=== PATIENT | male | born 1945 | race Caucasian/White ===

== ENCOUNTER → 2018-06-16 | Outpatient (CLI) | payer MEDICARE, OTHER ==
[~2018-06-16] VITALS: Ht 162.6 cm; Wt 70.4 kg
[~2018-06-16] MED LIST: ASPIRIN E.C. 8181 MG PO; CEPHALEXIN500 M1 PO; CIPRO 500MG TA500 MG PO; COLACE 100100 MG/CAP PO; DULERA1 ARO IH; FIBRO-TABS1 TAB PO; LEVAQUIN 750MG750 M1 PO; LIPITOR20 MG PO; LISINOPRIL10 MG PO; NEXIUM 40MG40 MG PO; NEXIUM PO; PERCOCET 325 MG1 TA2 PO; PREDNISONE20 MG PO; PRESERVISION1 SGL PO; PRILOSEC 20MG20 MG PO; PRINIVIL10 MG PO; PROVENTIL0.09 MG/A1 IH; TOPROL XL 25MG25 MG PO; UROXATRAL10 M1 PO; VENTOLIN0.09 MG IH
[2018-06-16 06:33] VITALS: BP 146/80; PULSE 76
[2018-06-16 07:52] VITALS: BP 134/71; PULSE 108
[2018-06-16 07:53] VITALS: BP 141/75; PULSE 103
[2018-06-16 07:54] VITALS: BP 135/72; PULSE 106
[2018-06-16 07:55] VITALS: BP 132/74; PULSE 98
== END ==
LOC: COL.CARD 06-15 06:30 → COL.VAS 06-15 09:00 → COL.CARD 06:22
DX: I25.10 Atherosclerotic heart disease of native coronary artery without angina pectoris (principal)
CPT/HCPCS: A9500; J2785

== ENCOUNTER → 2018-09-23 | Outpatient (CLI) | payer MEDICARE, OTHER ==
[~2018-09-23] VITALS: Ht 162.6 cm; Wt 78.2 kg
[2018-09-23 13:08] VITALS: BP 154/88; PULSE 69
[2018-09-23 14:53] VITALS: BP 139/88; PULSE 70
== END ==
LOC: COL.RAD 12:45
DX: M47.812 Spondylosis without myelopathy or radiculopathy, cervical region (principal)

== ENCOUNTER → 2019-10-25 | Outpatient (CLI) | payer MEDICARE, OTHER | LOC: COL.RAD 07:43 | DX: M25.552 Pain in left hip (principal) | CPT/HCPCS: A9585; Q9967 ==

== ENCOUNTER → 2019-11-23 | Outpatient (CLI) | payer MEDICARE, OTHER | LOC: COL.LAB 08:00 → JCC 11-29 07:30 → EDSTATUS 12-01 07:30 → JCC 12-01 07:30 | DX: Z01.812 Encounter for preprocedural laboratory examination (principal) ==

== ENCOUNTER → 2020-06-23 | Outpatient (CLI) | payer MEDICARE, OTHER ==
--- NOTE | 2020-06-22 14:15 | NUR ---
SPOKE TO WITH DORY AND GAVE INSTRUCTIONS
[~2020-06-23] MED LIST changes: +JANUVIA 100MG100 MG PO; +XOPENEX HF0.045 MG/A IH
== END ==
LOC: COL.RAD 06-21 13:00
DX: M47.816 Spondylosis without myelopathy or radiculopathy, lumbar region (principal); M54.41 Lumbago with sciatica, right side

== ENCOUNTER → 2020-08-01 | Outpatient (CLI) | payer MEDICARE, OTHER ==
[~2020-08-01] VITALS: Ht 162.6 cm; Wt 74.6 kg
[~2020-08-01] MED LIST changes: +IMDUR 30MG30 MG/TAB PO
[2020-08-01 10:20] VITALS: BP 153/85; PULSE 66
--- NOTE | 2020-08-01 10:20 | NUR ---
PT STATES HE HAS PAIN ACROSS HIS LOWER BACK. DID NOT RATE THE PAIN.ON OCCASION THE PAIN WILL TRAVEL SOWN BOTH LEGS
[2020-08-01 11:00] VITALS: BP 138/79; PULSE 61
== END ==
LOC: COL.RAD 09:19
DX: M48.061 Spinal stenosis, lumbar region without neurogenic claudication (principal); M54.41 Lumbago with sciatica, right side
CPT/HCPCS: J3301

== ENCOUNTER → 2020-08-28 | Outpatient (CLI) | payer MEDICARE, OTHER | LOC: COL.RAD 13:15 | DX: M25.511 Pain in right shoulder (principal) | CPT/HCPCS: J3301; Q9967 ==

== ENCOUNTER 2021-09-25 12:41 | Outpatient (RCR) | payer MEDICARE, OTHER | END 2021-10-02 | disposition home or self-care (01) | LOC: WSST | DX: R13.12 Dysphagia, oropharyngeal phase (principal) ==

== ENCOUNTER 2021-10-08 13:53 | Outpatient (RCR) | payer MEDICARE, OTHER | END 2021-11-01 | LOC: WSST | DX: R13.12 Dysphagia, oropharyngeal phase (principal) ==

== ENCOUNTER → 2021-10-08 | Outpatient (CLI) | payer MEDICARE, OTHER | LOC: COL.RAD 07:56 | DX: R13.12 Dysphagia, oropharyngeal phase (principal) ==